=== PATIENT | male | born 1965 | race Caucasian/White ===

== ENCOUNTER 2018-07-10 23:25 | Inpatient (IN) | payer MEDICARE ==
[~2018-07-10] VITALS: Ht 182.9 cm; Wt 137.5 kg
--- NOTE | ~2018-07-10 | MORECARE ---
CASE MANAGEMENT DISCHARGE SUMMARY PATIENT: RENATE GRACIA UNIT: [id number] ADM DATE: 07/11/18 AGE: 53 : 65 SEX: M ROOM/BED: D.2130 AUTHOR: BENJAMIN,DOC PHYSICIAN: REFERRING PHYSICIAN: BEAU TAPIA MD DATE OF SERVICE: 07/16/18 Discharge Plan Patient Name: RENATE GRACIA Facility: [facility]:[place] : 1965 Planned Disposition: Other Type of Facility Anticipated Discharge Date: 07/14/18 Discharge Date: 07/14/2018 Expected LOS: 3 Initial Reviewer: [id number] Initial Review Date: 07/13/2018 Generated: 07/16/18 10:54 am Comments DCP- Discharge Planning Updated by [id number]: Adelso Heard on 07/13/18 3:[address] Patient Name: RENATE GRACIA Admission Status: ER Accout number: [id number] Admission Date: 07-11-2018 : 1965 Admission Diagnosis:CELLULITIS OF UNSPECIFIED PART OF LIMB Attending: BEAU TAPIA Current LOS: 2 Anticipated DC Date: 07-14-2018 Planned Disposition: Other Type of Facility Primary Insurance: MEDICARE A & B PLANNED EXTERNAL PROVIDER: [facility], [address] [place] [address]. [id number] Discharge Planning Comments: CM RECEIVED ORDERS TO ENSURE PT CAN GET MEDICATIONS AND A PLACE FOR PT TO STAY AT DISCHARGE. CM MET WITH PT IN ROOM TO DISCUSS DISCHARGE PLANNING AND NEEDS. PT REPORTS LIVING ON THE STREETS OF [place] INDEPENDENTLY AND ALONE. PT WAS STAYING AT THE [facility] AND WAS TOLD NOT TO COME BACK. PT DOES NOT KNOW WHY BUT UNDERSTANDS HE CANNOT STAY THERE AGAIN. PT IS AWARE THERE ARE NO OTHER HOMELESS SHELTERS IN [place]. PT HAS NO MEDICAL EQUIPMENT AND NO OUTSIDE SERVICES ASSISTING IN THE HOME. CM DISCUSSED AVAILABILITY OF HOME HEALTH, REHAB SERVICES AND MEDICAL EQUIPMENT. PT REPORTS PLAN TO GO TO [place] ON THE BUS WHEN HE GETS HIS DISABILITY CHECK ON THE July. PT STATES HE RECEIVES DISABILTY FOR WHAT IS WRONG WITH HIS FEET. PT WOULD LIKE ASSISTANCE WITH TRANSPORT TO THE [employer] STATION IN [place]. PT STATES HIS MOTHER, WHO LIVES IN [place], OFFERED HIM A RIDE TO [place] TO THE BUS STATION AND ENDED UP DROPPING HIM OFF IN [place] WERE THERE IS NO [employer] BUS STATION ANY LONGER. PT IS AWARE OF HE LOCATION OF [facility] AND HAS NOT USED ANY SERVICES OF THIS TIME. CM EXPLAINED CRISIS SERVICES AVAILABLE AT [facility] ON [facility] IF NEEDED. PT REPORTS HAVING HIS INSURANCE CARDS AND CAN GET HIS MEDICATIONS AT ANY [facility]. CM ASKED TO LIST AN EMERGENCY CONTACT PT LISTED NONE, PT LISTED [facility], UNCLE IN [place], ; CM ASKED ABOUT LISTING HIS MOTHER, PT STATES HIS MOTHER HAS MENTAL PROBLEMS AND HE DOES NOT WANT TO LIST HER AN EMERGENCY CONTACT. PT STATES HE HAS NO FAMILY OR FRIENDS TO CALL AT DISCHARGE FOR ANY ASSISTANCE AND HAS NO MONEY UNTIL JULY 23. CM RESEARCHED [employer] DEPOT IN [place], PRINTED INFORMATION ON ADDRESS AND PHONE NUMER, ALSO PRINTED [facility] QUOTES ON BUS TRANSPORT TO [facility] FROM [place]. CM CALLED [place] TAXI, OBTAINED QUOTE FOR TAXI SERVICE FROM [facility] TO [facility] IN [place], [address], QOTE OF $125 RECEIVED. CM CONTACTED CM CSR RET[employer] [facility] AND OBTAINED APPROVAL FOR VOUCHER FOR TRANSPORT AT DISCHARGE. CM RECEIVED ORDER FOR PLACEMENT IN CRISIS STABALIZATION CENTER. CM SPOKE TO BEDSIDE NURSE INFORMED CM THAT PT'S MOTHER HAD CALLED AND INFORMED HER THAT PT HAS SCHIZOPHRENIA AND SHE WOULD LIKE HIM PLACED IN A CRISIS STABALIZATION CENTER AND NOT TO RUN OFF AGAIN. CM SPOKE TO PT IN ROOM, DISCUSSED PLACEMENT OPTION IN CRISIS STABALIZATION CENTER IN [facility]. PT REPORTS HE IS NOT GOING TO A STABALIZATION CENTER AND AGAIN REPORTS THAT HIS MOTHER DOES NOT KNOW WHAT SHE IS TALKING ABOUT AND THAT SHE IS "CRAZY HERSELF". PT DENIES NEED FOR MENTAL HEALTH CARE AND STATES AGAIN HE WANTS TO GO TO [facility] TO LIVE AND WILL BE BUYING BUS TICKET WHEN HE GETS HIS DISABILITY CHECK ON THE July. CM PROVIDED PT WITH WRITTEN INFORMATION REGARDING THE [facility] RETIREMENT IN [place], [employer] BUS DEPOT IN [place], COSTS OF TICKET TO [facility] AND INFORMED PT THAT CSR RETAIL APPROVED HOSPTIAL TO PAY FOR THE CAB RIDE TO [place] HOMELESS RETIREMENT. IMPORTANT MESSAGE FROM MEDICARE PROVIDED AND EXPLAINED. PT THANKED CM AND DENIES FURHTER NEEDS, STATES HE WILL CALL HIS MOTHER THIS EVENING AND DISCUSS THIS WITH HER. PT HAS INSURANCE CARDS AND PRESCRIPTION COVERAGE, WILL NEED WRITTEN PRESCRIPTIONS TO FILL AT PHARMACY OF HIS CHOOSING. PT PLANS TO DISCHARGE TO [facility] IN [place] ([address], [place], [place].) CM CSR RETAIL ANNE HICKS HAS APPROVED $125 TAXI TRANSPORT TO [facility] FOR PT AT DISCHARGE. AT DISCHARGE, CALL [place] [facility], [phone], ARRANGE TRANSPORTATION ON CASE MANAGEMENT VOUCHER APPROVAL PER CSR RETAIL ANNE HICKS. Pier Runner: Adelso Heard DCPIA - Discharge Planning Initial Assessment Updated by [id number]: Adelso Heard on 07/13/18 4:15 pm * Is the patient Alert and Oriented? Yes * How many steps to enter\\exit or inside your home? NONE * PCP NONE * Pharmacy [facility] IN [place] WILL NEED HAND WRITTEN SCRIPTS PT IS NOT GOING BACK TO [place] AT DISCHARGE * Preadmission Environment Homeless * Other Environment LIVING ON THE STREETS OF [place] * Facility Name NONE - PT REPORTS BEING BANNED FROM [facility] IN [place] FOR "UNKNOWN REASON" * ADLs Independent * Equipment None * Other Equipment NO MEDICAL EQUIPMEN PROVIDER PREFERENCE * List name and contact numbers for known caregivers / representatives who currently or will assist patient after discharge: BAY URSULAPEARL, UNCLE, * Verbal permission to speak to the caregivers and representatives has been obtained from the patient. No * Community resources currently utilized None * Please name any agencies selected above. NONE * Additional services required to return to the preadmission environment? No * Can the patient safely return to the preadmission environment? Yes * Has this patient been hospitalized within the prior 30 days at any hospital? No Coverage Notice Reviewer: [id number] - Adelso Heard Notice Issued Date-Time: 07/13/2018 12:50 Notice Type: IM Discharge Notice Notice Delivered To: Patient Relationship to Patient: Client Service Manager Name: Delivery Method: HAND - Hand Delivered Rosalba Days: Prior Verbal Notification: Recipient Understood Notice: Yes Recipient Signature: Yes Med Rec Note Co-signed by Attending: Coverage Notice Comment: Last DP export: 07/13/18 3:35 Patient Name: RENATE GRACIA Page 51269 at 0955 All edits/amendments must be made on the electronic document DICTATION DATE: 07/16/18953 DAMAGE APPRAISER: FIDEL 07/16/18953 RPT#: [id number] DC DATE:07/14/18 STATUS: DIS IN [facility] [address] [place] [address] END OF REPORT
--- NOTE | ~2018-07-10 | EC ---
PATIENT:RENATE GRACIA DATE OF SERVICE: 07/11/18 SEX: M MEDICAL RECORD: [id number] DATE OF : [birth year] LOCATION:D.M2 D.213 AGE OF PATIENT: 53 ADMISSION DATE: 07/11/18 REFERRING PHYSICIAN: INTERPRETING PHYSICIAN: YUKI BARCENAS MD ECHOCARDIOGRAM REPORT ECHO CHARGES 4 ECHO COMPLETE Date: 07/12/18 CLINICAL DIAGNOSIS: CHF ECHOCARDIOGRAPHIC MEASUREMENTS (adult normal given) AC root (d.<3.7cm) 4.4 cm LV Septum d (<1.2 cm> 1.3 cm Valve Excursion 1.4 cm LV Septum (systole) 1.5 cm Left Atria (s.<4.0cm> 4.1 cm LVPW d(<1.2cm) 1.5 cm RV (d.<2.3cm) 4.8 cm LVPW (sytole) 1.6 cm LV diastole(<5.6CM) 4.6 cm MV E-F(>70mm/sec) cm LV systole 3.3 cm LVOT Diameter 2.1 cm MV exc.(>10mm) 1.5 cm Est.ejection fraction (50-75%) % DOPPLER: LVIT cm/sec A 118 cm/sec E 97.0 cm/sec LA cm/sec RVSP 17 mmHg LVOT 149 cm/sec AOP1/2T m/s Asc. Ao 161 cm/sec RVOT 96 cm/sec RA cm/sec PA 140 cm/sec AV Gradient Peak 10.39mmHg AV Mean 5.32 mmHg AV Area 2.9 cm MV Gradient Peak 5.69 mmHg MV Mean 2.67 mmHg MV Area cm COMMENTS: Clinical Transformation Specialist: 2 SHUN TEJEDA Veterinary Medicine Teacher: Nena Barcenas TAPE# PACS Pericardial Effusion N DATE OF SERVICE: PROCEDURE: Transthoracic echocardiogram. FINDINGS: 1. Left ventricle was difficult to visualize. There is no obvious regional wall motion abnormalities and the ejection fraction appears to be well preserved at 60% to 65%. There does appear to be concentric left ventricular hypertrophy and inflow characteristics are consistent with diastolic dysfunction. 2. The left atrium appears to be mildly dilated. ECHOCARDIOGRAM REPORT [id number] RENATE GRACIA 3. The aortic valve is normal. 4. The mitral valve appears to be grossly normal. 5. The tricuspid valve is normal and RVSP is normal. 6. The right ventricle is mildly to moderately dilated, but with good function. 7. The right atrium is mildly dilated. CONCLUSIONS: The patient has evidence of mild hypertensive heart disease, but with normal left ventricular ejection fraction. TRANSINT:[id number] Voice Confirmation ID: [id number] DOCUMENT ID: [id number] YUKI BARCNEAS MD at 0916 CC: [id number] DICTATION DATE: 07/13/18 1308 COPPERSMITH APPRENTICE: 07/13/18 1507 ADM IN [facility] [address] [place] [address]
--- NOTE | ~2018-07-10 | MORECARE ---
CASE MANAGEMENT DISCHARGE SUMMARY PATIENT: RENATE GRACIA UNIT: [id number] ADM DATE: 07/11/18 AGE: 53 : 65 SEX: M ROOM/BED: D.2130 AUTHOR: BENJAMIN,DOC PHYSICIAN: REFERRING PHYSICIAN: BEAU TAPIA MD DATE OF SERVICE: 07/13/18 Discharge Plan Patient Name: RENATE GRACIA Facility: [facility]:[place] : 1965 Planned Disposition: Other Type of Facility Anticipated Discharge Date: 07/14/18 Discharge Date: Expected LOS: 3 Initial Reviewer: [id number] Initial Review Date: 07/13/2018 Generated: 07/13/18 5:23 pm DCPIA - Discharge Planning Initial Assessment Updated by [id number]: Adelso Heard on 07/13/18 4:15 pm * Is the patient Alert and Oriented? Yes * How many steps to enter\\exit or inside your home? NONE * PCP NONE * Pharmacy [facility] IN [place] WILL NEED HAND WRITTEN SCRIPTS PT IS NOT GOING BACK TO [place] AT DISCHARGE * Preadmission Environment Homeless * Other Environment LIVING ON THE [place]RE[place] OF [place] * Facility Name NONE - PT REPORTS BEING BANNED FROM [facility] IN [place] FOR "UNKNOWN REASON" * ADLs Independent * Equipment None * Other Equipment NO MEDICAL EQUIPMEN PROVIDER PREFERENCE * List name and contact numbers for known caregivers / representatives who currently or will assist patient after discharge: BAY VERGARAYUKIFABIOLA, UNCLE, * Verbal permission to speak to the caregivers and representatives has been obtained from the patient. No * Community resources currently utilized None * Please name any agencies selected above. NONE * Additional services required to return to the preadmission environment? No * Can the patient safely return to the preadmission environment? Yes * Has this patient been hospitalized within the prior 30 days at any hospital? No Coverage Notice Reviewer: [id number] - Adelso Heard Notice Issued Date-Time: 07/13/2018 12:50 Notice Type: IM Discharge Notice Notice Delivered To: Patient Relationship to Patient: Credit Control Manager Name: Delivery Method: HAND - Hand Delivered Rosalba Days: Prior Verbal Notification: Recipient Understood Notice: Yes Recipient Signature: Yes Med Rec Note Co-signed by Attending: Coverage Notice Comment: Patient Name: RENATE GRACIA Page [id number] at 1623 All edits/amendments must be made on the electronic document DICTATION DATE: 07/13/181622 ROAD MACHINE OPERATOR: FIDEL 07/13/181622 RPT#: [id number] DC DATE: STATUS: ADM IN [facility] [address] [place] [address] END OF REPORT
--- NOTE | ~2018-07-10 | MORECARE ---
CASE MANAGEMENT DISCHARGE SUMMARY PATIENT: RENATE GRACIA UNIT: [id number] ADM DATE: 07/11/18 AGE: 53 : 65 SEX: M ROOM/BED: D.2130 AUTHOR: BENJAMIN,DOC PHYSICIAN: REFERRING PHYSICIAN: BEAU TAPIA MD DATE OF SERVICE: 07/13/18 Discharge Plan Patient Name: RENATE GRACIA Facility: [facility]:[place] : 1965 Planned Disposition: Other Type of Facility Anticipated Discharge Date: 07/14/18 Discharge Date: Expected LOS: 3 Initial Reviewer: [id number] Initial Review Date: 07/13/2018 Generated: 07/13/18 5:34 pm Comments DCP- Discharge Planning Updated by [id number]: Adelso Heard on 07/13/18 3:[address] Patient Name: RENATE GRACIA Admission Status: ER Accout number: [id number] Admission Date: 07-11-2018 : 1965 Admission Diagnosis:CELLULITIS OF UNSPECIFIED PART OF LIMB Attending: BEAU TAPIA Current LOS: 2 Anticipated DC Date: 07-14-2018 Planned Disposition: Other Type of Facility Primary Insurance: MEDICARE A & B PLANNED EXTERNAL PROVIDER: [facility], [address] [place] [address]. [id number] Discharge Planning Comments: CM RECEIVED ORDERS TO ENSURE PT CAN GET MEDICATIONS AND A PLACE FOR PT TO STAY AT DISCHARGE. CM MET WITH PT IN ROOM TO DISCUSS DISCHARGE PLANNING AND NEEDS. PT REPORTS LIVING ON THE [place]REETS OF [place] INDEPENDENTLY AND ALONE. PT WAS STAYING AT THE [facility] AND WAS TOLD NOT TO COME BACK. PT DOES NOT KNOW WHY BUT UNDERSTANDS HE CANNOT STAY THERE AGAIN. PT IS AWARE THERE ARE NO OTHER HOMELESS SHELTERS IN [place]. PT HAS NO MEDICAL EQUIPMENT AND NO OUTSIDE SERVICES ASSISTING IN THE HOME. CM DISCUSSED AVAILABILITY OF HOME HEALTH, REHAB SERVICES AND MEDICAL EQUIPMENT. PT REPORTS PLAN TO GO TO [place] ON THE BUS WHEN HE GETS HIS DISABILITY CHECK ON THE July. PT STATES HE RECEIVES DISABILTY FOR WHAT IS WRONG WITH HIS FEET. PT WOULD LIKE ASSISTANCE WITH TRANSPORT TO THE [employer] STATION IN [place]. PT STATES HIS MOTHER, WHO LIVES IN [place], OFFERED HIM A RIDE TO [place] TO THE BUS STATION AND ENDED UP DROPPING HIM OFF IN [place] WERE THERE IS NO [facility] [facility] BUS STATION ANY LONGER. PT IS AWARE OF HE LOCATION OF [facility] AND HAS NOT USED ANY SERVICES OF THIS TIME. CM EXPLAINED CRISIS SERVICES AVAILABLE AT [facility] IF NEEDED. PT REPORTS HAVING HIS INSURANCE CARDS AND CAN GET HIS MEDICATIONS AT ANY [facility]. CM ASKED TO LIST AN EMERGENCY CONTACT PT LISTED NONE, PT LISTED [facility], UNCLE IN [place], ; CM ASKED ABOUT LISTING HIS MOTHER, PT STATES HIS MOTHER HAS MENTAL PROBLEMS AND HE DOES NOT WANT TO LIST HER AN EMERGENCY CONTACT. PT STATES HE HAS NO FAMILY OR FRIENDS TO CALL AT DISCHARGE FOR ANY ASSISTANCE AND HAS NO MONEY UNTIL JULY 23. CM RESEARCHED [employer] IN [place], PRINTED INFORMATION ON ADDRESS AND PHONE NUMER, ALSO PRINTED [facility] QUOTES ON BUS TRANSPORT TO [facility] FROM [place]. CM CALLED [place] [facility], OBTAINED QUOTE FOR TAXI SERVICE FROM [facility] IN [place], [address], QOTE OF $125 RECEIVED. CM CONTACTED CM [employer] [facility] AND OBTAINED APPROVAL FOR VOUCHER FOR TRANSPORT AT DISCHARGE. CM RECEIVED ORDER FOR PLACEMENT IN CRISIS STABALIZATION CENTER. CM SPOKE TO BEDSIDE NURSE INFORMED CM THAT PT'S MOTHER HAD CALLED AND INFORMED HER THAT PT HAS SCHIZOPHRENIA AND SHE WOULD LIKE HIM PLACED IN A CRISIS STABALIZATION CENTER AND NOT TO RUN OFF AGAIN. CM SPOKE TO PT IN ROOM, DISCUSSED PLACEMENT OPTION IN CRISIS STABALIZATION CENTER IN [facility]. PT REPORTS HE IS NOT GOING TO A STABALIZATION CENTER AND AGAIN REPORTS THAT HIS MOTHER DOES NOT KNOW WHAT SHE IS TALKING ABOUT AND THAT SHE IS "CRAZY HERSELF". PT DENIES NEED FOR MENTAL HEALTH CARE AND STATES AGAIN HE WANTS TO GO TO [facility] TO LIVE AND WILL BE BUYING BUS TICKET WHEN HE GETS HIS DISABILITY CHECK ON THE July. CM PROVIDED PT WITH WRITTEN INFORMATION REGARDING [facility] CARE HOME IN [place], [employer] BUS DEPOT IN [place], COSTS OF TICKET TO [facility] AND INFORMED PT THAT [employer] DIRECT[employer] APPROVED HOSPTIAL TO PAY FOR THE CAB RIDE TO [place] HOMELESS CARE HOME. IMPORTANT MESSAGE FROM MEDICARE PROVIDED AND EXPLAINED. PT THANKED CM AND DENIES FURHTER NEEDS, STATES HE WILL CALL HIS MOTHER THIS EVENING AND DISCUSS THIS WITH HER. PT HAS INSURANCE CARDS AND PRESCRIPTION COVERAGE, WILL NEED WRITTEN PRESCRIPTIONS TO FILL AT PHARMACY OF HIS CHOOSING. PT PLANS TO DISCHARGE TO [facility]IA [facility] IN [place] ([address], [facility] [place] CM [employer] DIRECTOR ANNE HICKS HAS APPROVED $125 TAXI TRANSPORT TO [facility] FOR PT AT DISCHARGE. AT DISCHARGE, CALL [place] [facility], [phone], ARRANGE TRANSPORTATION ON CASE MANAGEMENT VOUCHER APPROVAL PER [employer] HICKS. Relish Maker: Adelso Heard DCPIA - Discharge Planning Initial Assessment Updated by [id number]: Adelso Heard on 07/13/18 4:15 pm * Is the patient Alert and Oriented? Yes * How many steps to enter\\exit or inside your home? NONE * PCP NONE * Pharmacy [facility] IN [place] WILL NEED HAND WRITTEN SCRIPTS PT IS NOT GOING BACK TO [place] AT DISCHARGE * Preadmission Environment Homeless * Other Environment LIVING ON THE STREETS OF [place] * Facility Name NONE - PT REPORTS BEING BANNED FROM [facility] IN [place] FOR "UNKNOWN REASON" * ADLs Independent * Equipment None * Other Equipment NO MEDICAL EQUIPMEN PROVIDER PREFERENCE * List name and contact numbers for known caregivers / representatives who currently or will assist patient after discharge: BAY HAYES, UNCLE, * Verbal permission to speak to the caregivers and representatives has been obtained from the patient. No * Community resources currently utilized None * Please name any agencies selected above. NONE * Additional services required to return to the preadmission environment? No * Can the patient safely return to the preadmission environment? Yes * Has this patient been hospitalized within the prior 30 days at any hospital? No Coverage Notice Reviewer: [id number] - Adelso Heard Notice Issued Date-Time: 07/13/2018 12:50 Notice Type: IM Discharge Notice Notice Delivered To: Patient Relationship to Patient: Railroad Signal Operator Name: Delivery Method: HAND - Hand Delivered Rosalba Days: Prior Verbal Notification: Recipient Understood Notice: Yes Recipient Signature: Yes Med Rec Note Co-signed by Attending: Coverage Notice Comment: Last DP export: 07/13/18 3:23 Patient Name: RENATE GRACIA Page 43766 at 1635 All edits/amendments must be made on the electronic document DICTATION DATE: 07/13/181633 DIAGNOSTICS TECH: FIDEL 07/13/181633 RPT#: [id number] [place] DATE: STATUS: ADM IN [facility] [address] [place] [address] END OF REPORT
[2018-07-11] VITALS (7 sets, daily range): BP systolic 134–158; BP diastolic 66–94; Ht 182.9 cm; Wt 137.5 kg
[2018-07-11 00:08] LABS: HEMATOCRIT 36.4 % (42.0-54.0); HEMOGLOBIN 11.8 g/dL (13.5-17.5); LYMPHOCYTES 12.9 % (15-50); MCH 27.5 pg (26.0-34.0); MCHC 32.4 g/dL (31.0-37.0); MCV 84.8 fL (80.0-100.0); NEUTROPHILS 74.3 % (40-80); PLATELET COUNT 129 10x3/uL (130-400); RBC 4.29 10x6/uL (4.20-6.10); RDW 15.7 % (11.5-14.5); WBC 5.2 10x3/uL (4.8-10.8)
[2018-07-11 00:21] LABS: ALBUMIN 3.4 g/dL (3.4-5.0); ANION GAP 9.8 mmol/L (8-16); BILIRUBIN - TOTAL 0.44 mg/dL (0.2-1.3); CALCIUM 8.7 mg/dL (8.5-10.1); CARBON DIOXIDE 29.8 mmol/L (21.0-32.0); CREATININE - SERUM 1.1 mg/dL (0.6-1.3); POTASSIUM - SERUM 3.6 mmol/L (3.5-5.1); PROTEIN - SERUM 7.3 g/dL (6.4-8.2)
[2018-07-11 02:03] LABS: APPEARANCE CLEAR (CLEAR); BILIRUBIN NEGATIVE (NEGATIVE); COLOR YELLOW (YELLOW); GLUCOSE NEGATIVE (NEGATIVE); KETONE NEGATIVE (NEGATIVE); NITRITE NEGATIVE (NEGATIVE); PROTEIN NEGATIVE (NEGATIVE); UROBILINOGEN NORMAL (NORMAL)
[2018-07-11 02:06] LABS: BACTERIA NONE SEEN /hpf (NONE SEEN); EPITHELIAL CELLS NSEEN /hpf (0-5); RED CELLS - URINE 0-5 /hpf (0-5); WHITE CELLS - URINE 0-5 /hpf (0-5)
[2018-07-11 05:33] LABS: BASOPHILS 0.7 % (0-2); EOSINOPHILS 3.5 % (0-7); HEMATOCRIT 37.9 % (42.0-54.0); HEMOGLOBIN 12.1 g/dL (13.5-17.5); IMMATURE GRANULOCYTES 0.2 % (0-5); LYMPHOCYTES 13.5 % (15-50); MCH 27.3 pg (26.0-34.0); MCHC 31.9 g/dL (31.0-37.0); MCV 85.6 fL (80.0-100.0); MEAN PLATELET VOLUME 10.8 fL (7.4-10.4); MONOCYTES 7.8 % (2-11); NEUTROPHILS 74.3 % (40-80); PLATELET COUNT 132 10x3/uL (130-400); RBC 4.43 10x6/uL (4.20-6.10); RDW 16.2 % (11.5-14.5); WBC 5.9 10x3/uL (4.8-10.8)
[2018-07-11 06:10] LABS: ALBUMIN 3.2 g/dL (3.4-5.0); ALKALINE PHOSPHATASE 68 U/L (46-116); BILIRUBIN - TOTAL 0.56 mg/dL (0.2-1.3); CALC OSMOLALITY 279 mosm/kg (275-300); CALCIUM 8.6 mg/dL (8.5-10.1); CARBON DIOXIDE 26.5 mmol/L (21.0-32.0); CHLORIDE - SERUM 105 mmol/L (98-107); CREATININE - SERUM 0.9 mg/dL (0.6-1.3); GLUCOSE 97 mg/dL (74-106); POTASSIUM - SERUM 3.6 mmol/L (3.5-5.1); PROTEIN - SERUM 6.9 g/dL (6.4-8.2); SODIUM 140 mmol/L (136-145); UREA NITROGEN 14 mg/dL (7-18); eGFR NON AFRICAN AMERICAN > 90 mL/min (90-120)
[2018-07-11 06:17] LABS: ALT (SGPT) 18 U/L (10-68)
[2018-07-11 14:03] LABS: % SATURATION 14 % (15-55); IRON 43 ug/dl (35-150); TOTAL IRON BIND CAPACITY 291 ug/dl (260-445); UNSAT IRON BIND CAPACITY 248 ug/dl (150-375)
[2018-07-12 00:42] VITALS: BP 156/77
[2018-07-12 05:17] VITALS: BP 139/77
[2018-07-12 06:08] LABS: BASOPHILS 0.4 % (0-2); EOSINOPHILS 2.3 % (0-7); HEMATOCRIT 36.5 % (42.0-54.0); HEMOGLOBIN 11.8 g/dL (13.5-17.5); IMMATURE GRANULOCYTES 0.1 % (0-5); LYMPHOCYTES 7.6 % (15-50); MCH 27.8 pg (26.0-34.0); MCHC 32.3 g/dL (31.0-37.0); MCV 85.9 fL (80.0-100.0); MEAN PLATELET VOLUME 11.5 fL (7.4-10.4); MONOCYTES 7.1 % (2-11); NEUTROPHILS 82.5 % (40-80); PLATELET COUNT 133 10x3/uL (130-400); RBC 4.25 10x6/uL (4.20-6.10); RDW 16.3 % (11.5-14.5)
[2018-07-12 06:14] LABS: FOLATE (FOLIC ACID) - SERUM 8.5 ng/mL (>3.0)
[2018-07-12 06:23] LABS: WBC 7.5 10x3/uL (4.8-10.8)
[2018-07-12 06:33] LABS: CALC OSMOLALITY 279 mosm/kg (275-300); CALCIUM 8.6 mg/dL (8.5-10.1); CARBON DIOXIDE 28.8 mmol/L (21.0-32.0); CHLORIDE - SERUM 105 mmol/L (98-107); CREATININE - SERUM 0.9 mg/dL (0.6-1.3); GLUCOSE 98 mg/dL (74-106); POTASSIUM - SERUM 3.7 mmol/L (3.5-5.1); SODIUM 141 mmol/L (136-145); UREA NITROGEN 11 mg/dL (7-18); eGFR NON AFRICAN AMERICAN > 90 mL/min (90-120)
[2018-07-12 08:26] VITALS: BP 165/85
[2018-07-12 10:59] VITALS: BP 147/89
[2018-07-12 18:43] VITALS: BP 149/86
[2018-07-12 21:03] VITALS: BP 113/83
[2018-07-13] VITALS (7 sets, daily range): BP systolic 134–157; BP diastolic 72–94
[2018-07-13 06:34] LABS: BASOPHILS 0.6 % (0-2); EOSINOPHILS 4.4 % (0-7); HEMATOCRIT 37.6 % (42.0-54.0); IMMATURE GRANULOCYTES 0.2 % (0-5); MCH 27.3 pg (26.0-34.0); MCHC 31.9 g/dL (31.0-37.0); MCV 85.6 fL (80.0-100.0); MEAN PLATELET VOLUME 11.1 fL (7.4-10.4); MONOCYTES 6.4 % (2-11); NEUTROPHILS 75.4 % (40-80); PLATELET COUNT 127 10x3/uL (130-400); RBC 4.39 10x6/uL (4.20-6.10); RDW 16.3 % (11.5-14.5)
[2018-07-13 06:36] LABS: WBC 5.5 10x3/uL (4.8-10.8)
[2018-07-13 06:59] LABS: CALC OSMOLALITY 285 mosm/kg (275-300); CALCIUM 8.4 mg/dL (8.5-10.1); CARBON DIOXIDE 29.6 mmol/L (21.0-32.0); CHLORIDE - SERUM 106 mmol/L (98-107); CREATININE - SERUM 0.9 mg/dL (0.6-1.3); GLUCOSE 95 mg/dL (74-106); SODIUM 143 mmol/L (136-145); eGFR NON AFRICAN AMERICAN > 90 mL/min (90-120)
[2018-07-13 07:01] LABS: UREA NITROGEN 14 mg/dL (7-18)
[2018-07-14 03:50] VITALS: BP 147/85
[2018-07-14 05:50] LABS: BASOPHILS 0.5 % (0-2); EOSINOPHILS 4.3 % (0-7); HEMATOCRIT 35.8 % (42.0-54.0); HEMOGLOBIN 11.5 g/dL (13.5-17.5); IMMATURE GRANULOCYTES 0.3 % (0-5); LYMPHOCYTES 13.1 % (15-50); MCH 27.3 pg (26.0-34.0); MCHC 32.1 g/dL (31.0-37.0); MONOCYTES 9.6 % (2-11); NEUTROPHILS 72.2 % (40-80); PLATELET COUNT 125 10x3/uL (130-400); RBC 4.21 10x6/uL (4.20-6.10); RDW 16.3 % (11.5-14.5)
[2018-07-14 06:12] LABS: CALC OSMOLALITY 282 mosm/kg (275-300); CALCIUM 8.5 mg/dL (8.5-10.1); CARBON DIOXIDE 28.6 mmol/L (21.0-32.0); CHLORIDE - SERUM 106 mmol/L (98-107); CREATININE - SERUM 0.9 mg/dL (0.6-1.3); GLUCOSE 104 mg/dL (74-106); POTASSIUM - SERUM 3.7 mmol/L (3.5-5.1); SODIUM 141 mmol/L (136-145); eGFR NON AFRICAN AMERICAN > 90 mL/min (90-120)
[2018-07-14 06:15] LABS: UREA NITROGEN 18 mg/dL (7-18)
[2018-07-14 07:50] VITALS: BP 155/97
[2018-07-14] MEDS ORDERED: CIPRO500 MG PO (08:56)
[2018-07-14] MEDS ORDERED: VIBRAMYCIN 100100 MG PO (08:56)
[2018-07-14] MEDS ORDERED: NORCO 10-325 TA1 TAB PO (08:57)
[2018-07-14 11:09] VITALS: BP 148/86
== END 2018-07-14 14:16 | disposition home or self-care (01) | DRG 603 ==
LOC: D.ER 23:25 → D.M2 07-11 02:33 → EDBD 07-11 02:33 → D.M2 07-14 14:16
PROVIDERS: Family Medicine; Internal Medicine Nephrology
DX: L03.116 Cellulitis of left lower limb (principal); F17.213 Nicotine dependence, cigarettes, with withdrawal; L03.115 Cellulitis of right lower limb; I89.0 Lymphedema, not elsewhere classified; I10 Essential (primary) hypertension; D64.9 Anemia, unspecified; D69.6 Thrombocytopenia, unspecified; F20.9 Schizophrenia, unspecified; Z59.0 Homelessness